=== PATIENT | male | born 1965 | race Hispanic/Latino ===

== ENCOUNTER 2023-12-31 09:52 | Emergency (ER) | payer SELFPAY ==
[2023-12-31] MEDS ORDERED: Pantoprazole 40 MG VIAL ONE (10:14)
[2023-12-31 10:17] LABS: #Basophils 0.1 thou/uL (0.0-0.2); #Lymphocytes 1.3 thou/uL (1.20-3.40); #Monocytes 0.5 thou/uL (0.11-0.59); #Neutrophils 10.4 thou/uL (1.40-6.50); %Basophils 0.7 % (0.0-1.0); %Eosinophils 0.1 % (0.0-10.0); %Lymphocytes 10.3 % (21.0-51.0); %Neutrophils 84.9 % (42.0-75.0); Hemoglobin 15.2 g/dL (14.0-18.0); Mean Corpuscular Hemoglobin 30.6 pg (27.0-31.0); Mean Corpuscular Volume 92.6 fl (78.0-98.0); Mean Platelet Volume 8.2 fL (7.4-10.4); Platelet Count 181 10x3/uL (130-400); RBC Distribution Width 11.4 % (11.5-14.5); Red Blood Cell (RBC) Count 4.96 mill/uL (4.70-6.10); White Blood Cell (WBC) Count 12.3 10x3/uL (4.8-10.8)
[2023-12-31 10:30] LABS: Bilirubin Small (Negative); Blood, Urine Negative (Negative); Glucose, Urine (Dipstick) Negative (Negative); Ketone, Urine Trace mg/dL (Negative); Leukocyte Negative (Negative); Nitrite Negative (Negative); Protein, Urine (Dipstick) Trace mg/dL (Neg-Trace); Urobilinogen 0.2 mg/dL (Less than 2)
[2023-12-31 10:31] LABS: Clarity Cloudy (Clear)
[2023-12-31 10:35] LABS: ALT (SGPT) 17 U/L (8-55); AST (SGOT) 17 U/L (5-34); Albumin 4.1 g/dL (3.5-5.0); Alkaline Phosphatase 67 U/L (40-110); Anion Gap 16 mmol/L (10-20); BUN (Urea Nitrogen) 16 mg/dL (8.4-25.7); Bilirubin, Total 0.4 mg/dL (0.2-1.2); Calc. Creatinine Clearance 0 mL/min (70-130); Calcium 9.4 mg/dL (7.8-10.44); Carbon Dioxide 18 mmol/L (22-29); Chloride 108 mmol/L (98-107); Estimated GFR 67; Glucose 134 mg/dL (70-105); Lipase 23 U/L (8-78); Potassium 4.3 mmol/L (3.5-5.1); Protein, Total 8.1 g/dL (6.0-8.3); Sodium 138 mmol/L (136-145)
[2023-12-31 10:36] LABS: Troponin I 0.011 ng/mL (< 0.028)
[2023-12-31 10:40] LABS: CAUTI Indications for Culture Fever or rigors; Specific Gravity, Urine 1.032 (1.002-1.036); Urine Culture Reflex No No; WBC/HPF None Seen HPF (0-3)
[2023-12-31] MEDS ORDERED: Sodium Chloride 0.9% 1,000 ML ONE (10:44)
[2023-12-31] MEDS ORDERED: Ondansetron PF 4 MG/2 ML Vial ONE (10:53)
[2023-12-31] MEDS ORDERED: Ketorolac Tromethamine 30 MG (1 mL) VIAL ONE (10:53)
[2023-12-31 16:19] LABS: Hemoglobin A1c 5.7 % (4.0-6.0)
[2023-12-31 20:50] LABS: SARS-CoV-2 N1 Negative; SARS-CoV-2 N2 Negative; SARS-CoV-2 RNAse P1 Positive; SARS-CoV-2 RNAse P2 Positive
== END 2023-12-31 11:31 | disposition home or self-care (01) ==
LOC: NAV ERS 09:52
DX: K29.00 Acute gastritis without bleeding (principal); E86.0 Dehydration
CPT/HCPCS: 80053; 81001; 83036; 83690; 84443; 84484; 85025; 87635; 93005; 96361; 96374; 96375; J1885; J2405; J2470; J7030